=== PATIENT | male | born 1995 | race Caucasian/White ===

== ENCOUNTER 2017-04-13 20:59 | Emergency (ER) | payer BC ==
[~2017-04-13] VITALS: Ht 157.5 cm; Wt 69.8 kg
[~2017-04-13 20:59] MED LIST: FLEXERIL10 MG PO; NAPROXEN500 MG PO
[2017-04-14] MEDS ORDERED: TRAMADOL HCL50 MG PO (00:08)
[2017-04-14] MEDS ORDERED: FLEXERIL5 MG PO (00:08)
[2017-04-14 00:30] VITALS: BP 139/94
== END 2017-04-14 00:33 | disposition home or self-care (01) ==
LOC: EME 20:59 → RME 20:59
DX: S86.891A Other injury of other muscle(s) and tendon(s) at lower leg level, right leg, initial encounter (principal); X58.XXXA Exposure to other specified factors, initial encounter
CPT/HCPCS: 93971; 99281; 99284

== ENCOUNTER → 2017-06-13 | Outpatient (CLI) | payer BC ==
[~2017-06-13] MED LIST changes: +ADVIL,NUPRIN,M200 MG PO; +FLEXERIL5 MG PO; +NEURONTIN300 MG PO; +TRAMADOL HCL50 MG PO
== END | disposition home or self-care (01) ==
LOC: AMB 13:00
DX: M48.06 Spinal stenosis, lumbar region (principal); M48.9 Spondylopathy, unspecified; M54.16 Radiculopathy, lumbar region
CPT/HCPCS: 62304; 72131

== ENCOUNTER 2017-07-25 09:43 | Day surgery (SDC) | payer BC ==
[~2017-07-25] VITALS: Ht 157.5 cm; Wt 68.0 kg
[2017-07-25 10:45] VITALS: BP 127/74
[2017-07-25 16:19] VITALS: BP 138/75
[2017-07-25 17:16] VITALS: BP 124/72
[2017-07-25 18:01] VITALS: BP 126/56
== END 2017-07-25 18:01 | disposition home or self-care (01) ==
LOC: SDC 09:43
PROC: 01BB0ZX Excision of Lumbar Nerve, Open Approach, Diagnostic (ICD-10-PCS; principal; 2017-07-25)
DX: M71.38 Other bursal cyst, other site (principal); M51.16 Intervertebral disc disorders with radiculopathy, lumbar region; R20.0 Anesthesia of skin
CPT/HCPCS: 72020; 76000; 86850; 86900; 86901; 88305; J0131; J0330; J0690; J1100; J1170; J2250; J2405; J2710; J2930; J3010; S0020

== ENCOUNTER 2018-07-11 19:16 | Emergency (ER) | payer BC ==
[~2018-07-11] VITALS: Ht 157.5 cm; Wt 70.2 kg
[2018-07-11 22:34] VITALS: BP 125/89
== END 2018-07-11 22:35 | disposition home or self-care (01) ==
LOC: EME 19:16
DX: S00.81XA Abrasion of other part of head, initial encounter (principal); W20.8XXA Other cause of strike by thrown, projected or falling object, initial encounter
CPT/HCPCS: 70450; 99281; 99283

== ENCOUNTER 2018-07-17 16:13 | Emergency (ER) | payer BC ==
[~2018-07-17] VITALS: Ht 157.5 cm; Wt 69.9 kg
[2018-07-17 17:12] VITALS: BP 130/78
== END 2018-07-17 17:12 | disposition home or self-care (01) ==
LOC: EME 16:13
DX: R51 Headache (principal); R04.0 Epistaxis
CPT/HCPCS: 99281; 99284